=== PATIENT | male | born 2000 | race Caucasian/White ===

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

== ENCOUNTER 2023-09-15 17:27 | Emergency (ER) | payer OTHER, SELFPAY ==
[2023-09-15 17:45] VITALS: BP 118/73; PULSE 67; RESP 19; TEMP 36.7; O2SAT 99; BMI 16.5
--- NOTE | 2023-09-15 17:49 | ED_ITS ---
Discharge Plan Disposition Patient Disposition: Home, Self-Care Condition: Good Prescriptions Prescriptions: New doxycycline monohydrate 100 mg tablet 100 mg PO Q12 10 Days Qty: 20 0RF Referrals Follow up/Referrals: Brittaney Colby MD [Primary Care Provider] - See instructions Activity Restrictions/Add. Instructions Additional Instructions/Restrictions: Drink plenty of fluids. Take tylenol or ibuprofen for pain or fever. Take the medications as directed. Follow up with your regular doctor. GO TO THE ER FOR ANY WORSENING SYMPTOMS We will culture the urine. That will tell what bacteria is causing your infection and which antibiotics will treat it best. Sometimes the first antibiotic we prescribe turns out to not work against different bacteria. So, make sure you follow up within 3 days if you are not getting better. Clinical Impressions Clinical Impression: Dysuria, UTI (urinary tract infection) Instructions Patient Instructions: Urine Culture, DI for Urinary Tract Infection (UTI) Discharge ED Provider: Jacobo Horn [facility] General Stated complaint: poss UTI Time Seen by Provider: 09/15/23 17:49 History of Present Illness Provider Complaint: He states that for the past 3 days he has had dysuria and pus from his urethra. He denies any fever/chills. He denies any known std exposure. Related Data Previous Rx's Medication Instructions Recorded doxycycline monohydrate 100 mg 100 mg PO Q12 10 days #20 tabs 09/15/23 tablet Allergies Allergy/AdvReac Type Severity Reaction Status Date / Time No Known Allergies Allergy Verified 12/23/18 15:17 [facility] Disclaimer: The information contained in this section may have been updated after the patient was seen, as this information can be updated by other users. Medical History (Updated 09/15/23 @ 18:31 by Jacobo Horn APRN) No significant past medical history Social History Smoking Status: Never smoker second hand exposure: No alcohol intake: never current occupational status: other Travel in the last 8 weeks: None household members: family housing: house current occupational exposures/hazards: No caffeine: Yes ROS Obtained: Yes All systems reviewed & no additional complaints except as documented Constitutional Constitutional: Denies chills and Denies fever(s) Eyes Eyes: Denies eye discharge ENT Ears, Nose, Mouth, and Throat: Denies dizziness, Denies otalgia and Denies sore throat Cardiovascular Cardiovascular: Denies chest pain Respiratory Respiratory: Denies shortness of breath, Denies chest congestion, Denies cough, Denies stridor and Denies wheezing Gastrointestinal Gastrointestingal: Denies nausea or vomiting Genitourinary Male Genitourinary: Reports as per HPI, Reports difficulty urinating, Denies flank pain, Denies genital lesions, Denies scrotal swelling, Denies testicular pain, Denies urinary frequency, Denies urinary hesitancy, Denies urinary incontinence and Denies urinary urgency Musculoskeletal Musculoskeletal: Reports system reviewed and no additional complaints, except as documented and Denies arthralgias Integumentary/Breasts Skin/Breast: Denies rash Neurologic Neurologic: Denies dizziness and Denies paresthesias Allergic/Immunologic Allergic/Immunologic: Denies wheezing Physical Exam General General appearance: alert and in no apparent distress Head Head exam: atraumatic, normocephalic and normal inspection Eye Eye exam: Present normal appearance, PERRL and EOMI ENT ENT exam: Present normal exam, normal oropharynx, mucous membranes moist, TM's normal bilaterally and normal external ear exam Neck Neck exam: Present normal inspection, full ROM and trachea midline; Absent meningismus or lymphadenopathy Chest Chest inspection: Present normal inspection and symmetric chest wall rise; Absent tenderness Respiratory Respiratory exam: Present normal lung sounds bilaterally; Absent respiratory distress Cardiovascular Cardiovascular exam: Present regular rate and normal rhythm; Absent JVD Abdominal Exam Abdominal exam: Present soft and normal bowel sounds; Absent distention, tenderness or guarding Extremities Exam Extremities exam: Present normal inspection, full ROM and normal capillary refill; Absent calf tenderness Back Exam Back exam: Present normal inspection; Absent tenderness Neurological Exam Neurological exam: Present alert and oriented X3 Psychiatric Psychiatric exam: Present normal affect and normal mood Skin Skin exam: Present warm, dry, intact and normal color Lymphatic Lymphatic Findings: no adenopathy Medical Decision Making Medical Records Medical records reviewed: No I reviewed the patient's medical records. Matt Inquiry Pt receiving controlled substance: No Lab Data Lab results reviewed: Yes I reviewed the patient's lab results.
[2023-09-15 18:06] LABS: Apearance,Urine Clear (Clear); Bilirubin,Urine Negative (Negative); Blood, Urine 1+ (Negative); Color,Urine Yellow (Yellow); Glucose,Urine (UA) Negative (Negative); Ketones,Urine Negative (Negative); Protein,Urine Negative (Negative); UTC Leukocyte Esterase,Urine 1+ (Negative); UTC Nitrate,Urine Negative (Negative); Urobilinogen,Urine 0.2 EU/dl (0.2)
[2023-09-15 18:35] VITALS: BP 118/73; PULSE 67; RESP 19; TEMP 36.7; O2SAT 99
[2023-09-19 21:08] LABS: Neisseria gonorrhoeae, NAA Negative (Negative)
== END 2023-09-15 18:37 | disposition home or self-care (01) ==
PROVIDERS: Emergency Provider Nurse Practitioner Family; PCP Family Medicine
DX: N39.0 Urinary tract infection, site not specified (principal); R30.0 Dysuria
CPT/HCPCS: 81003; 87086; 87491; 87591; 99212; 99214; G0463

== ENCOUNTER 2023-11-13 18:13 | Emergency (ER) | payer OTHER, SELFPAY ==
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
[2023-11-13 19:45] VITALS: BP 114/65; PULSE 73; RESP 18; TEMP 36.8; O2SAT 100; BMI 16.3
--- NOTE | 2023-11-13 20:06 | EXP.UTC ---
Discharge Plan Disposition Patient Disposition: Home, Self-Care Condition: Good Prescriptions Prescriptions: New bacitracin 500 unit/gram ointment 1 applic topical TID 10 Days Qty: 28 0RF Rx Instructions: apply to abrasions on right hand ondansetron 4 mg tablet,disintegrating 4 mg PO Q8H PRN (Reason: nausea and vomiting) Qty: 10 0RF No Action doxycycline monohydrate 100 mg tablet 100 mg PO Q12 10 Days Qty: 20 0RF Referrals Follow up/Referrals: Brittaney Colby MD [Primary Care Provider] - See instructions Activity Restrictions/Add. Instructions Additional Instructions/Restrictions: Clean abrasions with antibacterial soap and water Apply bacitracin to wounds on hand as advised Follow up with your Family Doctor if needed Straight to ER if any life threatening symptoms Clinical Impressions Clinical Impression: Contusion of hand Qualifiers: Encounter type: initial encounter Laterality: right Qualified Code(s): S60.221A - Contusion of right hand, initial encounter Instructions Patient Instructions: DI for Contusion, DI for Abrasion Print Language Print Language: Hungarian Discharge ED Provider: Sherry Sosa [facility] General Stated complaint: AO 11/10/23 1800 injury right hand Time Seen by Provider: 11/13/23 20:06 History of Present Illness Provider Complaint: Patient states that a couple days ago he was agrivated and punched a wall hurting his right hand States that he has several abrasions on his hand and it is bruised so today he came in to get it checked States also been having diarrhea on and off for last week and nausea for the last couple of days Related Data Previous Rx's ?Medication ?Instructions ?Recorded doxycycline monohydrate 100 mg 100 mg PO Q12 10 days #20 tabs 09/15/23 tablet bacitracin 500 unit/gram topical 1 applic topical TID 10 days #28 11/13/23 ointment grams ondansetron 4 mg disintegrating 4 mg PO Q8H PRN nausea and 11/13/23 tablet vomiting #10 tabs Allergies Allergy/AdvReac Type Severity Reaction Status Date / Time No Known Allergies Allergy Verified 12/23/18 15:17 [facility] Disclaimer: The information contained in this section may have been updated after the patient was seen, as this information can be updated by other users. Medical History (Updated 11/13/23 @ 20:11 by Sherry Sosa APRN) No significant past medical history Social History (Updated 09/17/23 @ 10:51 by Jacobo Horn APRN) Smoking Status: Never smoker second hand exposure: No alcohol intake: never current occupational status: other Travel in the last 8 weeks: None household members: family housing: house current occupational exposures/hazards: No caffeine: Yes ROS Obtained: Yes All systems reviewed & no additional complaints except as documented and Yes Systems reviewed as appropriate & no additional complaints except as documented Constitutional Constitutional: Reports system reviewed and no additional complaints, except as documented and Reports as per HPI ENT Ears, Nose, Mouth, and Throat: Reports system reviewed and no additional complaints, except as documented and Reports as per HPI Cardiovascular Cardiovascular: Reports system reviewed and no additional complaints, except as documented and Reports as per HPI Respiratory Respiratory: Reports system reviewed and no additional complaints, except as documented and Reports as per HPI Gastrointestinal Gastrointestingal: Reports system reviewed and no additional complaints, except as documented, as per HPI, diarrhea and nausea; Denies abdominal pain Musculoskeletal Musculoskeletal: Reports system reviewed and no additional complaints, except as documented, Reports as per HPI and Reports other Comments: abrasions and bruising to right hand Physical Exam General General appearance: alert and in no apparent distress ENT ENT exam: Present mucous membranes moist Respiratory Respiratory exam: Present normal lung sounds bilaterally; Absent respiratory distress or wheezes Cardiovascular Cardiovascular exam: Present regular rate, normal rhythm and normal heart sounds Expanded Upper Extremity Exam Right: Hand exam: Present tenderness and ecchymosis Hand L/R back image: 1. abrasions and bruising noted able to move fingers easily Neurological Exam Neurological exam: Present alert, oriented X3 and normal gait Medical Decision Making Matt Inquiry Pt receiving controlled substance: No Matt was queried for this patient: No Orders (Tests/Meds): ORDERS Category Date Time Status Hand XR right minimum 3 views [XR hand RT min 3V] Stat Exams 11/13/23 18:28 Completed Wrist XR right minimum 3 views [XR wrist RT min 3V] Exams 11/13/23 18:28 Completed Stat Radiology Data #1: Image(s): Hand Image Reviewed: Yes I have reviewed radiologist's interpretation IMPRESSION: No acute fracture or dislocation. #2: Image(s): Wrist Image Reviewed: Yes I have reviewed radiologist's interpretation
[2023-11-13 20:19] VITALS: BP 114/65; PULSE 73; RESP 18; TEMP 36.8; O2SAT 100
== END 2023-11-13 20:28 | disposition home or self-care (01) ==
PROVIDERS: Emergency Provider Nurse Practitioner; PCP Family Medicine
DX: S60.221A Contusion of right hand, initial encounter (principal); W22.8XXA Striking against or struck by other objects, initial encounter
CPT/HCPCS: 73110; 73130; 99212; 99214; G0463

== ENCOUNTER 2023-12-07 19:17 | Emergency (ER) | payer OTHER, SELFPAY ==
[2023-12-07 19:27] VITALS: BP 107/68; PULSE 81; RESP 20; TEMP 36.6; O2SAT 100; BMI 16.5
--- NOTE | 2023-12-07 19:31 | ED_ITS ---
Discharge Plan Disposition Patient Disposition: Home, Self-Care Condition: Good Prescriptions Prescriptions: New ondansetron 4 mg Tablet,Disintegrating 4 mg PO Q8H PRN (Reason: Nausea) Qty: 12 0RF Referrals Follow up/Referrals: Brittaney Colby MD [Primary Care Provider] - See instructions Activity Restrictions/Add. Instructions Additional Instructions/Restrictions: Drink plenty of fluids. Water or an electrolyte drink like pedialyte would be best. Take the zofran (ondesetron) as directed for nausea/vomiting. Follow up with your regular doctor. GO TO THE ER FOR ANY WORSENING SYMPTOMS Make sure you bring the diarrhea stool sample back so we can analyze it and find out what's causing your ongoing diarrhea. Clinical Impressions Clinical Impression: Diarrhea Stand Alone Forms Stand Alone Forms: Work/School Release Instructions Patient Instructions: Diarrhea Print Language Print Language: Greenlandic Discharge ED Provider: Jacobo Horn [facility] HPI General Stated complaint: Diarrhea Mode of Arrival: Ambulatory Source of Information: Patient Time Seen by Provider: 12/07/23 19:31 Description of Symptoms (Recalled from Triage Doc. by RN): C/O DIARRHEA X2 WEEKS, DENIES ABD PAIN, C.O INTERMITTENT NAUSEA WHEN FIRST WAKING UP, INTERMITTENTLY WORSE AFTER EATING HEENT Symptoms (Recalled from RN notes): No Resp Symptoms (Recalled from RN notes): No Skin Symptoms (Recalled from RN notes): No MS Symptoms (Recalled from RN notes): No Functional Status (Recalled from RN notes): WNL; History of Present Illness Provider Complaint: He states that he has had diarrhea for the past 2 weeks. He was seen here when it first began but he did not return the stool sample back to the lab. He denies any abdominal pain. He has had intermittent nausea, but he has not vomited. He has not had any fever/chills/malaise. Related Data Previous Rx's ?Medication ?Instructions ?Recorded ondansetron 4 mg disintegrating 4 mg PO Q8H PRN Nausea #12 tabs 12/07/23 tablet Allergies Allergy/AdvReac Type Severity Reaction Status Date / Time No Known Allergies Allergy Verified 12/23/18 15:17 Worker's Comp Is this a Worker's Comp case?: No [facility] Disclaimer: The information contained in this section may have been updated after the patient was seen, as this information can be updated by other users. Medical History (Updated 12/07/23 @ 19:46 by Jacobo Horn APRN) No significant past medical history Social History (Updated 09/17/23 @ 10:51 by Jacobo Horn APRN) Smoking Status: Never smoker second hand exposure: No alcohol intake: never current occupational status: other Travel in the last 8 weeks: None household members: family housing: house current occupational exposures/hazards: No caffeine: Yes ROS Obtained: Yes All systems reviewed & no additional complaints except as documented Constitutional Constitutional: Denies chills, Denies fever(s) and Reports poor appetite ENT Ears, Nose, Mouth, and Throat: Denies dizziness and Denies sore throat Cardiovascular Cardiovascular: Denies dyspnea Respiratory Respiratory: Denies chest congestion, Denies cough and Denies dyspnea Gastrointestinal Gastrointestingal: Reports as per HPI; Denies abdominal pain or hematochezia Musculoskeletal Musculoskeletal: Denies arthralgias Integumentary/Breasts Skin/Breast: Denies rash Neurologic Neurologic: Denies dizziness Physical Exam General General appearance: alert and in no apparent distress Head Head exam: atraumatic and normocephalic Eye Eye exam: Present normal appearance, PERRL and EOMI ENT ENT exam: Present normal exam, normal oropharynx, mucous membranes moist, TM's normal bilaterally and normal external ear exam Neck Neck exam: Present normal inspection, full ROM and trachea midline; Absent tenderness, meningismus or lymphadenopathy Chest Chest inspection: Present normal inspection and symmetric chest wall rise; Absent tenderness, rash or abscess Respiratory Respiratory exam: Present normal lung sounds bilaterally; Absent respiratory distress, wheezes or stridor Cardiovascular Cardiovascular exam: Present regular rate and normal rhythm; Absent irregular rhythm, systolic murmur, diastolic murmur or JVD Abdominal Exam Abdominal exam: Present soft and hyperactive bowel sounds; Absent distention, tenderness, guarding, rebound, rigidity, psoas sign, obturator sign, heel tap sign, Mc's sign, Rovsing's sign or tenderness at McBurney's Point Extremities Exam Extremities exam: Present normal inspection and full ROM; Absent tenderness Back Exam Back exam: Present normal inspection and full ROM; Absent tenderness, CVA tenderness (R) or CVA tenderness (L) Neurological Exam Neurological exam: Present alert, oriented X3 and CN II-XII intact Psychiatric Psychiatric exam: Present normal affect and normal mood Skin Skin exam: Present warm, dry, intact and normal color Lymphatic Lymphatic Findings: no adenopathy Medical Decision Making Medical Records Medical records reviewed: No I reviewed the patient's medical records. Screening: Per USPSTF and CDC recommendations, given the prevalence of disease in our region, it is our hospital?s policy to screen for HIV and viral Hepatitis for all patients aged 18 and over and those with ongoing risk factors. Matt Inquiry Pt receiving controlled substance: No Vital Signs: 12/07/23 19:27 Temperature 97.9 F Temperature Source Oral Pulse Rate [Left Radial] 81 Respiratory Rate 20 Blood Pressure [Left Arm] 107/68 L Blood Pressure Mean [Left Arm] 81 02 Sat by Pulse Oximetry 100
[2023-12-07 19:46] VITALS: BP 107/68; PULSE 81; RESP 20; TEMP 36.6
== END 2023-12-07 19:51 | disposition home or self-care (01) ==
PROVIDERS: Emergency Provider Nurse Practitioner Family; PCP Family Medicine
DX: R19.7 Diarrhea, unspecified (principal)
CPT/HCPCS: 99213; G0381

== ENCOUNTER 2023-12-17 18:38 | Emergency (ER) | payer OTHER, SELFPAY ==
[2023-12-17 19:40] VITALS: BP 107/57; PULSE 85; RESP 20; TEMP 36.8; O2SAT 99; BMI 17.1
--- NOTE | 2023-12-17 20:06 | EXP.UTC ---
Discharge Plan Disposition Patient Disposition: Home, Self-Care Condition: Good Referrals Follow up/Referrals: Brittaney Colby MD [Primary Care Provider] - See instructions Activity Restrictions/Add. Instructions Additional Instructions/Restrictions: Make appointment with your Family Doctor for furhter treatment and evaluation of symptoms Follow up with your Family Doctor for evaluation for ADHD Watch what you are eating and make a food diary to share with your Family Doct Make sure that your drinking plenty of fluids, eating a diet high and fiber, fruits and vegetable Clinical Impressions Clinical Impression: Nausea Stand Alone Forms Stand Alone Forms: Work/School Release Instructions Patient Instructions: DI for Irritable Bowel Syndrome, Irritable Bowel Syndrome Print Language Print Language: Samoan Discharge ED Provider: Sherry Sosa [facility] [place] General Stated complaint: Stomach pain,ADHD Mode of Arrival: Ambulatory Source of Information: Patient Limitations: No Limitations Time Seen by Provider: 12/17/23 20:06 Description of Symptoms (Recalled from Triage Doc. by RN): PATIENT C/O VOMITING AND OCCASIONAL STOMACH PAIN FOR APPROX 4 WEEKS HEENT Symptoms (Recalled from RN notes): No Resp Symptoms (Recalled from RN notes): No Skin Symptoms (Recalled from RN notes): No MS Symptoms (Recalled from RN notes): No Functional Status (Recalled from RN notes): WNL History of Present Illness Provider Complaint: Patient states that for the last month he has been having diarrhea then constipation States that he thinks he may have IBS and he was not able to go to work Mon, and monday and wanted to see if he could get a note for it States also he thinks he may have ADHD and wasnt sure if he could be seen here for that Related Data Allergies Allergy/AdvReac Type Severity Reaction Status Date / Time No Known Allergies Allergy Verified 12/23/18 15:17 Worker's Comp Is this a Worker's Comp case?: No [facility] Disclaimer: The information contained in this section may have been updated after the patient was seen, as this information can be updated by other users. Medical History (Updated 12/17/23 @ 20:19 by Sherry Sosa APRN) No significant past medical history Social History (Updated 09/17/23 @ 10:51 by Jacobo Horn APRN) Smoking Status: Never smoker second hand exposure: No alcohol intake: never current occupational status: other Travel in the last 8 weeks: None household members: family housing: house current occupational exposures/hazards: No caffeine: Yes ROS Obtained: Yes All systems reviewed & no additional complaints except as documented and Yes Systems reviewed as appropriate & no additional complaints except as documented Constitutional Constitutional: Reports system reviewed and no additional complaints, except as documented and Reports as per HPI ENT Ears, Nose, Mouth, and Throat: Reports system reviewed and no additional complaints, except as documented and Reports as per HPI Cardiovascular Cardiovascular: Reports system reviewed and no additional complaints, except as documented and Reports as per HPI Respiratory Respiratory: Reports system reviewed and no additional complaints, except as documented and Reports as per HPI Gastrointestinal Gastrointestingal: Reports system reviewed and no additional complaints, except as documented, as per HPI, constipation, cramping, diarrhea and nausea Genitourinary Male Genitourinary: Reports system reviewed and no additional complaints, except as documented and Reports as per HPI Physical Exam General General appearance: alert and in no apparent distress ENT ENT exam: Present mucous membranes moist Respiratory Respiratory exam: Present normal lung sounds bilaterally; Absent respiratory distress or wheezes Cardiovascular Cardiovascular exam: Present regular rate, normal rhythm and normal heart sounds Abdominal Exam Abdominal exam: Present soft and normal bowel sounds; Absent distention, tenderness, guarding or rebound Neurological Exam Neurological exam: Present alert, oriented X3 and normal gait Medical Decision Making Medical Records Screening: Per USPSTF and CDC recommendations, given the prevalence of disease in our region, it is our hospital?s policy to screen for HIV and viral Hepatitis for all patients aged 18 and over and those with ongoing risk factors. Matt Inquiry Pt receiving controlled substance: No Matt was queried for this patient: No Vital Signs: 12/17/23 19:40 Temperature 98.3 F Temperature Source Oral Pulse Rate [Left Brachial] 85 Respiratory Rate 20 Blood Pressure [Left Arm] 107/57 L Blood Pressure Mean [Left Arm] 73 Blood Pressure Source [Left Arm] Automatic Cuff Blood Pressure Position [Left Arm] Sitting 02 Sat by Pulse Oximetry 99 Oxygen Delivery Method Room Air
[2023-12-17 20:20] VITALS: BP 107/57; PULSE 85; RESP 20; TEMP 36.8; O2SAT 99
[2023-12-17 20:32] LABS: Adenovirus F 40/41, stool Not Detected (NotDetected); Astrovirus Not Detected (NotDetected); Campylobacter Not Detected (NotDetected); Clostridium Difficile A/B, PCR Not Detected (NotDetected); Cryptosporidium Not Detected (NotDetected); Cyclospora Cayetanesis Not Detected (NotDetected); Entamoeba histolytica Not Detected (NotDetected); Enteroaggregative E coli Not Detected (NotDetected); Enterotoxigenic E coli Not Detected (NotDetected); Norovirus Not Detected (NotDetected); Plesimonas Shigalloides, PCR Not Detected (NotDetected); Rotavirus A Not Detected (NotDetected); Salmonella, PCR Not Detected (NotDetected); Sapovirus Not Detected (NotDetected); Shiga-like toxin E coli Not Detected (NotDetected); Shigella Enterovasive E coli Not Detected (NotDetected); Vibrio Cholerae Not Detected (NotDetected); Vibrio, PCR Not Detected (NotDetected); Yersinia Entercolitica, PCR Not Detected (NotDetected)
[2023-12-18 08:50] LABS: Enteropathogenic E coli Detected (NotDetected); Giardia lamblia Detected (NotDetected)
--- NOTE | 2023-12-18 11:48 | PC.NURSE ---
ATTEMPTED TO NOTIFY PATIENT OF DIARRHEA PANEL RESULTS AND NEW MEDICATION SENT IN BY Romulo PEARL APRN. NO ANSWER, VOICE MAIL LEFT TO RETURN CALL
== END 2023-12-17 20:24 | disposition home or self-care (01) ==
PROVIDERS: Emergency Provider Nurse Practitioner; PCP Family Medicine
DX: R11.0 Nausea (principal)
CPT/HCPCS: 87507; 99213; G0381

== ENCOUNTER 2024-03-09 14:20 | Emergency (ER) | payer OTHER, SELFPAY ==
--- NOTE | 2024-03-09 14:28 | XR_ITS ---
PROCEDURE INFORMATION: Exam: XR Right Foot Exam date and time: 03/09/2024 2:24 PM Age: 23 years old Clinical indication: Injury or trauma; Other: Dog stepped on foot; Blunt trauma; Right TECHNIQUE: Imaging protocol: Radiologic exam of the right foot. Views: 3 or more views. Total images: 3 COMPARISON: No relevant prior studies available. FINDINGS: Bones/joints: No evidence of acute fracture or dislocation. Soft tissues: Soft tissues are within normal limits. IMPRESSION: No evidence of acute fracture or dislocation.
[2024-03-09 15:40] VITALS: BP 129/76; PULSE 84; RESP 18; TEMP 36.9; O2SAT 98; BMI 16.7
--- NOTE | 2024-03-09 16:17 | EXP.UTC ---
Discharge Plan Disposition Patient Disposition: Home, Self-Care Condition: Good Prescriptions Prescriptions: No Action metronidazole 250 mg tablet 250 mg PO TID 7 Days Qty: 21 0RF Referrals Follow up/Referrals: Brittaney Colby MD [Primary Care Provider] - See instructions Activity Restrictions/Add. Instructions Additional Instructions/Restrictions: *weight bearing as tolerated *RICE, Rest the extremity, Ice 15-20 minutes 3-4 times daily, Compress- wear the sandeep wrap as discussed as much as possible to help reduce swelling and pain, Elevate the extremity when at rest *Sandeep wrap is for support and help control swelling, use it except in the shower. Be sure that is not to tight but not to loose either *Elevate when resting? *Ibuprofen 600-800mg every 6-8 hours as needed for pain an inflammation. If need something more can take Tylenol in between doses of Ibuprofen to help Immediately follow up with your family doctor for new or worsening of symptoms, or no noticeable improvement over the next 3-5 days Clinical Impressions Clinical Impression: Contusion of foot Instructions Patient Instructions: DI for Contusion, Contusion Print Language Print Language: [place] Citizen Discharge ED Provider[place] [facility] [place] General Stated complaint: left foot pain Mode of Arrival: Ambulatory Source of Information: Patient Limitations: No Limitations Time Seen by Provider: 03/09/24 16:17 Description of Symptoms (Recalled from Triage Doc. by RN): PATIENT C/O PAIN TO RIGHT FOOT AFTER HITTING IN ON A DESK WHILE PLAYING WITH HIS DOG LAST NIGHT HEENT Symptoms (Recalled from RN notes): No Resp Symptoms (Recalled from RN notes): No Skin Symptoms (Recalled from RN notes): No MS Symptoms (Recalled from RN notes): Yes Functional Status (Recalled from RN notes): WNL History of Present Illness Provider Complaint: Pain in top of right foot after hitting it on table last night States that top of foot is tender and bruised so he wanted to get it checked Related Data Previous Rx's ?Medication ?Instructions ?Recorded metronidazole 250 mg tablet 250 mg PO TID 7 days #21 tabs 12/18/23 Allergies Allergy/AdvReac Type Severity Reaction Status Date / Time No Known Allergies Allergy Verified 12/23/18 15:17 Worker's Comp Is this a Worker's Comp case?: No [facility] Disclaimer: The information contained in this section may have been updated after the patient was seen, as this information can be updated by other users. Medical History (Updated 03/09/24 @ 16:26 by Sherry Sosa APRN) No significant past medical history Social History (Updated 09/17/23 @ 10:51 by Jacobo Horn APRN) Smoking Status: Never smoker second hand exposure: No alcohol intake: never current occupational status: other Travel in the last 8 weeks: None household members: family housing: house current occupational exposures/hazards: No caffeine: Yes Have you lived/traveled outside [place] in past 30 days?: No Contact w/someone who lives/traveled outside [place] past 30 days?: No Exposure to someone with infectious disease in past 14 days?: No Do you have a fever (greater than 100.4 F or 38 C)?: No Have you tested positive for COVID-19: No Exposed to someone with COVID-19 in past 14 days?: No Do you have a sore throat?: No Do you have a cough?: No Do you have any weakness?: No Do you have any diarrhea?: No Are you experiencing any unusual bleeding?: No Do you have any muscle aches/pain?: No Do you have any abdominal pain?: No Are you experiencing loss of taste or smell?: No ROS Obtained: Yes All systems reviewed & no additional complaints except as documented and Yes Systems reviewed as appropriate & no additional complaints except as documented Constitutional Constitutional: Reports system reviewed and no additional complaints, except as documented and Reports as per HPI ENT Ears, Nose, Mouth, and Throat: Reports system reviewed and no additional complaints, except as documented and Reports as per HPI Cardiovascular Cardiovascular: Reports system reviewed and no additional complaints, except as documented and Reports as per HPI Respiratory Respiratory: Reports system reviewed and no additional complaints, except as documented and Reports as per HPI Gastrointestinal Gastrointestingal: Reports system reviewed and no additional complaints, except as documented and as per HPI Musculoskeletal Musculoskeletal: Reports system reviewed and no additional complaints, except as documented, Reports as per HPI and Reports other Comments: Pain in top of right foot after hitting it on table last night Physical Exam General General appearance: alert and in no apparent distress ENT ENT exam: Present normal exam, normal oropharynx, mucous membranes moist and TM's normal bilaterally Respiratory Respiratory exam: Present normal lung sounds bilaterally; Absent respiratory distress or wheezes Cardiovascular Cardiovascular exam: Present regular rate, normal rhythm and normal heart sounds Abdominal Exam Abdominal exam: Present soft and normal bowel sounds; Absent distention or tenderness Expanded Lower Extremity Exam Right: Foot/toe exam: Present tenderness and abrasion (superficial abrasions noted); Absent swelling Neurovascular/Tendon exam: Present normal capillary refill Gait: observed and normal Neurological Exam Neurological exam: Present alert, oriented X3 and normal gait Medical Decision Making Medical Records Screening: Per USPSTF and CDC recommendations, given the prevalence of disease in our region, it is our hospital?s policy to screen for HIV and viral Hepatitis for all patients aged 18 and over and those with ongoing risk factors. Matt Inquiry Pt receiving controlled substance: No Matt was queried for this patient: No Vital Signs: 03/09/24 15:40 Temperature 98.4 F Temperature Source Oral Pulse Rate [Left Brachial] 84 Respiratory Rate 18 Blood Pressure [Left Arm] 129/76 Blood Pressure Mean [Left Arm] 93 Blood Pressure Source [Left Arm] Automatic Cuff Blood Pressure Position [Left Arm] Sitting 02 Sat by Pulse Oximetry 98 Oxygen Delivery Method Room Air Orders (Tests/Meds): ORDERS Category Date Time Status XR foot RT min 3V Stat Exams 03/09/24 14:28 Completed Radiology Data #1: Image(s): Foot/Toes Image Reviewed: Yes I have reviewed radiologist's interpretation IMPRESSION: No evidence of acute fracture or dislocation.
[2024-03-09 16:27] VITALS: BP 129/76; PULSE 84; RESP 18; TEMP 36.9; O2SAT 98
== END 2024-03-09 16:33 | disposition home or self-care (01) ==
PROVIDERS: Emergency Provider Nurse Practitioner; PCP Family Medicine
DX: S90.31XA Contusion of right foot, initial encounter (principal)
CPT/HCPCS: 73630; 99213; G0381

== ENCOUNTER 2024-06-07 01:16 | Emergency (ER) | payer OTHER, SELFPAY ==
[2024-06-07 01:22] VITALS: BP 131/75; PULSE 88; RESP 16; TEMP 36.7; O2SAT 97; BMI 18.7
--- NOTE | 2024-06-07 01:27 | ED_ITS ---
Discharge Plan Disposition Patient Disposition: Home, Self-Care Prescriptions Prescriptions: No Action ondansetron 4 mg tablet,disintegrating 4 mg PO Q8H PRN (Reason: nausea and vomiting) Qty: 14 0RF Referrals Follow up/Referrals: Brittaney Colby MD [Primary Care Provider] - See instructions Activity Restrictions/Add. Instructions Additional Instructions/Restrictions: Please follow-up with your primary care provider for recheck of your labs. Please return to the emergency department if you develop any new or worsening symptoms or become concerned for your health. Clinical Impressions Clinical Impression: Hyperbilirubinemia Stand Alone Forms Stand Alone Forms: Work/School Release Instructions Patient Instructions: DI for Skin Abscess Print Language Print Language: Indonesian Discharge ED Provider: Hugo Briseno General Adult HPI General Chief complaint: Skin/Abscess/Foreign Body Stated complaint: vomiting, abd pain, possible jaundice Time Seen by Provider: 06/07/24 01:18 Mode of Arrival: Ambulatory Source of Information: Patient Description of Symptoms (Recalled from ER Triage Doc. by RN): Pt states family thinks he is jaundiced today Decreased appetite History of Present Illness HPI narrative: 23-year-old male without significant past medical history presents for multiple complaints. He reports his intermittent abdominal pain, generalized, comes and goes over the last couple of weeks. He reports he took a herbal cleanse called [employer] a couple of days ago. Yesterday he noted that his eyes were starting to turn yellow and so he presents for further evaluation. He denies significant pain or other symptoms at this time. Reports has been having bowel movements that are more green than normal but denies any significant diarrhea. Denies any drug use. Related Data Previous Rx's ?Medication ?Instructions ?Recorded ondansetron 4 mg disintegrating 4 mg PO Q8H PRN nausea and 06/04/24 tablet vomiting #14 tabs Allergies Allergy/AdvReac Type Severity Reaction Status Date / Time No Known Allergies Allergy Verified 06/04/24 13:47 [facility] Disclaimer: The information contained in this section may have been updated after the patient was seen, as this information can be updated by other users. Medical History No significant past medical history Social History Smoking Status: Current every day smoker second hand exposure: No alcohol intake: never current occupational status: other Travel in the last 8 weeks: None household members: family housing: house current occupational exposures/hazards: No caffeine: Yes Have you lived/traveled outside US in past 30 days?: No Contact w/someone who lives/traveled outside US past 30 days?: No Exposure to someone with infectious disease in past 14 days?: No Do you have a fever (greater than 100.4 F or 38 C)?: No Have you tested positive for COVID-19: No Exposed to someone with COVID-19 in past 14 days?: No Do you have a sore throat?: No Do you have a cough?: No Do you have any weakness?: No Do you have any diarrhea?: No Are you experiencing any unusual bleeding?: No Do you have any muscle aches/pain?: No Do you have any abdominal pain?: Yes Are you experiencing loss of taste or smell?: No ROS Obtained: Yes All systems reviewed & no additional complaints except as documented Physical Exam General General appearance: alert and in no apparent distress Head Head exam: atraumatic and normocephalic Eye Eye exam: Present normal appearance, PERRL and EOMI ENT ENT exam: Present normal oropharynx and normal external ear exam Neck Neck exam: Present normal inspection and full ROM Chest Chest inspection: Present normal inspection and symmetric chest wall rise; Absent tenderness Respiratory Respiratory exam: Present normal lung sounds bilaterally; Absent respiratory distress Cardiovascular Cardiovascular exam: Present regular rate and normal rhythm Abdominal Exam Abdominal exam: Present soft; Absent distention, tenderness or guarding Extremities Exam Extremities exam: Present normal inspection; Absent edema or joint swelling Back Exam Back exam: Present normal inspection; Absent tenderness Neurological Exam Neurological exam: Present alert and oriented X3; Absent motor sensory deficit Psychiatric Psychiatric exam: Present normal affect and normal mood Skin Skin exam: Present warm, dry and normal color Lymphatic Lymphatic Findings: no adenopathy Medical Decision Making Medical Records Medical records reviewed: Yes I reviewed the patient's medical records. Screening: Per USPSTF and CDC recommendations, given the prevalence of disease in our region, it is our hospital?s policy to screen for HIV and viral Hepatitis for all patients aged 18 and over and those with ongoing risk factors. Matt Inquiry Pt receiving controlled substance: No Matt was queried for this patient: No Vital Signs: 06/07/24 01:22 06/07/24 04:02 Temperature 98.0 F 98 F Temperature Source Oral Pulse Rate 88 Pulse Rate [Right Brachial] 88 Respiratory Rate 16 14 Blood Pressure 117/77 Blood Pressure [Right Arm] 131/75 Blood Pressure Mean [Right Arm] 93 Blood Pressure Source [Right Arm] Automatic Cuff Blood Pressure Position Sitting Blood Pressure Position [Right Arm] Sitting 02 Sat by Pulse Oximetry 97 Oxygen Delivery Method Room Air Room Air Lab Data Lab results reviewed: Yes I reviewed the patient's lab results. Lab Results 06/07/24 01:56: WBC 7.7, RBC 4.75, Hgb 14.8, Hct 41.4 L, MCV 87.2, MCH 31.2, M CHC 35.7 H, RDW 11.7, Plt Count 302, MPV 9.4, Neut % (Auto) 60.6, Lymph % (Auto) 26.7, [place] % (Auto) 8.6, Eos % (Auto) 3.3, Baso % (Auto) 0.7, Neut # (Auto) 4.7, Lymph # (Auto) 2.1, [place] # (Auto) 0.7, Eos # (Auto) 0.3, Baso # (Auto) 0.1, PT 11.9, INR 1.07, Sodium 140, Potassium 4.1, Chloride 99, Carbon Dioxide 28, Anion Gap 17.1 H, BUN 13, Creatinine 0.90, Estimated Creat Clear 125, Estimated GFR 107, Est GFR ( Amer) 129, Glucose 94, Calcium 10.0, Total Bilirubin 4.8 H , Direct Bilirubin 0.2, Conjugated Bilirubin 0.0, Indirect Bilirubin 4.6 H, U nconjugated Bilirubin 4.6 H, AST 30, ALT 22, Alkaline Phosphatase 75, Total Protein 8.8 H, Albumin 5.3 H, Globulin 3.5 H, Albumin/Globulin Ratio 1.5, HCV Ab IKE w/Rflx PCR Qn Negative, Monoscreen Negative, HIV Ag/Ab Combo Qual Negative 06/07/24 01:56 06/07/24 01:56 Orders (Tests/Meds): ED MEDICATIONS Discontinued Medications Generic Name Dose Route Start Last Admin Trade Name Freq PRN Reason Stop Dose Admin Iopamidol 75 ml 06/07/24 02:51 06/07/24 02:51 Iopamidol-370 (76%);100ml Bottle IV 06/07/24 02:52 75 ml ONCE ONE Administration Sodium Chloride 10 ml 06/07/24 02:51 06/07/24 02:51 Sodium Chloride 0.9% 10ml Syr (Rad Only) IV 07/07/24 02:50 10 ml NEEDED PRN Administration Maintain IV Site ORDERS Category Date Time Status CT abdomen pelvis w con Stat Cat Scan 06/07/24 01:44 Completed Bilirubin Group (Ind,Dir,Tot) Stat Lab 06/07/24 01:56 Completed CBC w/Auto Diff [Complete Blood Count Auto Diff] Stat Lab 06/07/24 01:56 Results CMP [Comprehensive Metabolic Panel] Stat Lab 06/07/24 01:56 Completed HIV Combo Routine Lab 06/07/24 01:56 Completed Hepatitis C Ab Qual. W/ RFX Routine Lab 06/07/24 01:56 Completed Hepatitis Panel Stat Lab 06/07/24 01:56 Received INR [Prothrombin Time INR] Stat Lab 06/07/24 01:56 Completed Monoscreen (Rapid) Stat Lab 06/07/24 01:56 Completed Peripheral Smear Review Stat Lab 06/07/24 01:56 Results Medical Decision Narrative: 23-year-old male without significant past medical history presents with couple weeks of vague migratory abdominal pain, 1 day of jaundice. History was obtained via interactive discussion with patient. On arrival, patient is [afebrile, hemodynamically stable, satting appropriately, alert, oriented x4, GCS 15], moving all extremities spontaneously. Full physical exam performed and significant for subtle scleral icterus, no abdominal tenderness Differential includes but is not limited to hepatitis, cholecystitis, choledocholithiasis, gilbert syndrome,. Workup initiated including CBC CMP peripheral smear, hepatitis panel, bilirubin conjugated and unconjugated, HIV,. On re-evaluation, patient [remains afebrile, HD stable.] Laboratory workup independently interpreted by me and significant for hyperbilirubinemia with direct bilirubin 0.2, indirect bilirubin 4.6. No anemia noted, normal LFTs. Imaging independently interpreted by me and significant for no evidence of biliary pathology, no other abnormality noted. See radiology read for full review of final results. Given patient history, exam and workup, patient's presentation most likely represents asymptomatic unconjugated hyperbilirubinemia. Underlying etiology is uncertain. Patient has no history of gilbert syndrome or other biliary pathology. No abnormal findings on CT imaging, LFTs are otherwise normal. Could be related to the herbal cleanse that he took a couple of days ago. no further workup needed in the ER. Patient was discharged in stable condition with instructions to call his PCP and follow-up for lab recheck. Procedures Risk/Benefits of Procedure(s) Were Explained: Yes Critical Care Critical Care Time Critical Care Time: No
--- NOTE | 2024-06-07 01:44 | CT_ITS ---
PROCEDURE INFORMATION: Exam: CT Abdomen And Pelvis With Contrast Exam date and time: 06/07/2024 2:46 AM Age: 23 years old Clinical indication: Abdominal pain; Additional info: 2 weeks abd pain, jaundice TECHNIQUE: Imaging protocol: Computed tomography of the abdomen and pelvis with contrast. Radiation optimization: All CT scans at this facility use at least one of these dose optimization techniques: automated exposure control; mA and/or kV adjustment per patient size (includes targeted exams where dose is matched to clinical indication); or iterative reconstruction. Contrast material: ISOVUE; Contrast volume: 75 ml; Contrast route: IV; COMPARISON: No relevant prior studies available. FINDINGS: Liver: Normal. No mass. Gallbladder and biliary ducts: Normal. No calcified stones. No ductal dilation. Pancreas: Normal. No ductal dilation. Spleen: Normal. No splenomegaly. Adrenal glands: Normal. No mass. Kidneys and ureters: Punctate bilateral caliceal stones without ureteral or bladder stone. Stomach and bowel: Unremarkable. No obstruction. No mucosal thickening. Appendix: No evidence of appendicitis. Intraperitoneal space: Unremarkable. No free air. No significant fluid collection. Vasculature: Unremarkable. No abdominal aortic aneurysm. Lymph nodes: Unremarkable. No enlarged lymph nodes. Urinary bladder: See Kidneys and ureters finding. Reproductive: Unremarkable as visualized. Bones/joints: Unremarkable. No acute fracture. Soft tissues: Unremarkable. IMPRESSION: Punctate bilateral caliceal stones without ureteral or bladder stone. No visualized hepatobiliary pathology.
[2024-06-07 02:12] LABS: Basophils # 0.1 K/mm3 (0-0.2); Basophils % 0.7 % (0.1-2.0); Eosinophils # 0.3 K/mm3 (0.0-0.4); Eosinophils % 3.3 % (0.1-12.0); Hematocrit 41.4 % (42.0-52.0); Hemoglobin 14.8 g/dL (14.1-18.0); Lymphocytes # 2.1 K/mm3 (0.7-4.5); Lymphocytes % 26.7 % (10-50); Mean Corpuscular HGB Conc 35.7 g/dL (31.8-35.4); Mean Corpuscular Hemoglobin 31.2 pg (27.0-31.2); Mean Corpuscular Volume 87.2 fl (80-94); Mean Platelet Volume 9.4 fl (7.4-10.4); Monocytes # 0.7 K/mm3 (0.1-1.0); Monocytes % 8.6 % (1.7-9.3); Neutrophils # 4.7 K/mm3 (1.8-7.8); Neutrophils % 60.6 % (37.0-80.0); Platelet Count 302 K/mm3 (142-424); Red Blood Count 4.75 M/mm3 (4.60-6.20); Red Cell Distribution Width 11.7 % (11.5-17.5); White Blood Count 7.7 K/mm3 (4.8-10.8)
[2024-06-07 02:22] LABS: Alanine Aminotransferase 22 U/L (12-78); Albumin Level 5.3 g/dl (3.5-5.0); Albumin/Globulin Ratio 1.5 (1.1-1.8); Alkaline Phosphatase 75 U/L (38-126); Anion Gap 17.1 mEq/L (5-15); Aspartate Amino Transferase 30 U/L (17-59); Bilirubin,Direct 0.2 mg/dl (0.0-0.4); Bilirubin,Indirect 4.6 mg/dL (0.0-0.9); Bilirubin,Total 4.8 mg/dl (0.2-1.3); Bilirubin,Unconjugated 4.6 mg/dL (0.0-1.1); Blood Urea Nitrogen 13 mg/dl (9-20); Carbon Dioxide 28 mmol/L (22.0-30.0); Chloride 99 mmol/L (98-107); Creatinine Clearance Estimated 125 mL/min (50-200); Estimated Glomerular Filt Rate 107 ml/min (>60); GFR (African American) 129 ML/MIN (>60); Globulin 3.5 g/dL (1.3-3.2); Glucose 94 mg/dl (74-100); Potassium 4.1 mmoL/L (3.5-5.1); Sodium 140 mmol/L (136-145); Total Protein,Serum 8.8 g/dl (6.3-8.2)
[2024-06-07 02:25] LABS: INR 1.07 (0.9-1.1); Prothrombin Time 11.9 seconds (10.1-12.5)
[2024-06-07 02:26] LABS: Monoscreen (Rapid) Negative (Negative)
[2024-06-07] MEDS: SODIUM CHLORIDE 0.9% 10ML SYR (RAD ONLY) 10 ML IV (02:51)
[2024-06-07] MEDS: IOPAMIDOL-370 (76%);100ML BOTTLE 75 ML IV (02:51)
[2024-06-07 04:02] VITALS: BP 117/77; PULSE 88; RESP 14; TEMP 36.6; O2SAT 96
[2024-06-07 04:48] LABS: Hepatitis C Ab Qual. W/ RFX NEGATIVE (Negative)
[2024-06-07 05:38] LABS: HIV Combo NEGATIVE (Negative)
[2024-06-08 06:10] LABS: HBsAg Screen Negative (Negative); HCV Ab Non Reactive (Non Reactive); Hep A Ab, IGM Negative (Negative); Hep B Core Ab, IgM Negative (Negative)
[2024-06-09 02:09] LABS: Peripheral Smear Review Scanned Result
== END 2024-06-07 04:04 | disposition home or self-care (01) ==
PROVIDERS: Emergency Provider Emergency Medicine; PCP Family Medicine
DX: E80.6 Other disorders of bilirubin metabolism (principal); F17.210 Nicotine dependence, cigarettes, uncomplicated
CPT/HCPCS: 74177; 80053; 80074; 82247; 82248; 85025; 85610; 86318; 86803; 87389; 99285; Q9967

== ENCOUNTER 2024-07-25 12:21 | Emergency (ER) | payer OTHER, SELFPAY ==
[2024-07-25 12:30] VITALS: BP 131/70; PULSE 83; RESP 20; TEMP 36.7; O2SAT 100; BMI 19.0
--- NOTE | 2024-07-25 12:33 | CT_ITS ---
FINAL REPORT TECHNIQUE: Noncontrast exam This study was performed with techniques to keep radiation doses as low as reasonably achievable, (ALARA). Individualized dose reduction techniques using automated exposure control or adjustment of mA and/or kV according to the patient''s size were employed. CLINICAL HISTORY: L flank / LLQ abd pain hx of kidney stones pain on left sided started this morning COMPARISON: 06/07/2024 FINDINGS: CT ABDOMEN PELVIS WITHOUT CONTRAST: Abdomen: There is mild left hydronephrosis and hydroureter without an obstructing stone. There is a 3 mm calcification in the bladder presumed to be a recently passed stone. There are a few small 2 mm bilateral calyceal stones noted in both kidneys. The gallbladder is unremarkable. The solid organs are otherwise unremarkable as well. No mass or free fluid is identified. Pelvis: No distal ureteral stones are seen. There is a tiny 3 mm calcification in the right side of the bladder best seen on image #105, consistent with a recently passed stone. The appendix is normal in appearance. The pelvic bowel is unremarkable. No fluid collection or adenopathy is seen. IMPRESSION: Mild left hydronephrosis and hydroureter without an obstructing stone. There is a 3 mm calcification in the bladder presumed to be a recently passed stone. A few small 2 mm bilateral calyceal stones are noted in both kidneys. Reviewed, Interpreted and Dictated by Romulo Sorto MD Transcribed by Ana Rosa Pereira Authenticated and [facility]
--- NOTE | 2024-07-25 12:37 | ED_ITS ---
<Statement entered by Keith Mackenzie MD - 07/25/24 16:15> Independently examined the patient. He is well-appearing. Has no flank tenderness. Has already passed the stone here. Urine is not infected. Small stones on CT, but creatinine within normal limits, not acutely actionable. Sent with hydration and pain control. Stricter precautions. I was consulted by the MJ, and we discussed the complexity of problems being addressed. I approved the treatment and management plan for this patient's care in the emergency department, thus performing a substantial portion of the medical decision making. Keith Mackenzie MD Discharge Plan Disposition Patient Disposition: Home, Self-Care Prescriptions Prescriptions: No Action ondansetron 4 mg tablet,disintegrating 4 mg PO Q8H PRN (Reason: nausea and vomiting) Qty: 14 0RF Referrals Follow up/Referrals: Brittaney Colby MD [Primary Care Provider] - See instructions Activity Restrictions/Add. Instructions Additional Instructions/Restrictions: Today, you were evaluated in the emergency department. You have small bilateral stones, please increase your fluid intake. You may take acetaminophen or ibuprofen as directed [id number]. Please follow-up with urology if needed. Return to the ED for worsening of condition. Clinical Impressions Clinical Impression: Bilateral renal stones Stand Alone Forms Stand Alone Forms: Work/School Release Instructions Patient Instructions: DI for Urinary Tract Infection (UTI) Print Language Print Language: Slovak Discharge ED Provider: Keith Mackenzie General Adult HPI General Chief complaint: Urogenital-Male Stated complaint: abd/side/ back pain, vomiting Time Seen by Provider: 07/25/24 12:25 Mode of Arrival: Ambulatory Source of Information: Patient and Spouse Description of Symptoms (Recalled from ER Triage Doc. by RN): pt is here bc he woke up at 1100 in severe pain from left flank area and having urinary urgency, pt has hx of kidney stone as well as some n/v History of Present Illness HPI narrative: Patient is a 24-year-old male PMHx renal calculi who presents to the ED for complaints of left flank and left groin pain that started this morning. Patient states the pain woke him up out of his sleep. He states he is has a history of kidney stones and this feels the same. Related Data Previous Rx's ?Medication ?Instructions ?Recorded ondansetron 4 mg disintegrating 4 mg PO Q8H PRN nausea and 06/04/24 tablet vomiting #14 tabs Allergies Allergy/AdvReac Type Severity Reaction Status Date / Time No Known Allergies Allergy Verified 06/04/24 13:47 [facility] Disclaimer: The information contained in this section may have been updated after the patient was seen, as this information can be updated by other users. Medical History No significant past medical history Social History Smoking Status: Current every day smoker second hand exposure: No alcohol intake: never current occupational status: other Travel in the last 8 weeks?: None household members: family housing: house current occupational exposures/hazards: No caffeine: Yes Have you lived/traveled outside US in past 30 days?: No Contact w/someone who lives/traveled outside US past 30 days?: No Exposure to someone with infectious disease in past 14 days?: No Do you have a fever (greater than 100.4 F or 38 C)?: No Have you tested positive for COVID-19?: No Exposed to someone with COVID-19 in past 14 days?: No Do you have a sore throat?: No Do you have a cough?: No Do you have any weakness?: No Do you have any diarrhea?: No Are you experiencing any unusual bleeding?: No Do you have any muscle aches/pain?: No Do you have any abdominal pain?: Yes Are you experiencing loss of taste or smell?: No ROS Obtained: Yes Systems reviewed as appropriate & no additional complaints except as documented Physical Exam General General appearance: alert and in no apparent distress Head Head exam: atraumatic and normocephalic Eye Eye exam: Present normal appearance and PERRL ENT ENT exam: Present normal exam Neck Neck exam: Present normal inspection Chest Chest inspection: Present normal inspection and symmetric chest wall rise; Absent tenderness Respiratory Respiratory exam: Present normal lung sounds bilaterally Cardiovascular Cardiovascular exam: Present regular rate Abdominal Exam Abdominal exam: Present soft, tenderness (LLQ) and normal bowel sounds Extremities Exam Extremities exam: Present normal inspection and full ROM Back Exam Back exam: Present full ROM and CVA tenderness (L) Neurological Exam Neurological exam: Present alert and oriented X3 Psychiatric Psychiatric exam: Present normal affect and normal mood Skin Skin exam: Present warm and dry Medical Decision Making Medical Records Screening: Per USPSTF and CDC recommendations, given the prevalence of disease in our region, it is our hospital?s policy to screen for HIV and viral Hepatitis for all patients aged 18 and over and those with ongoing risk factors. Matt Inquiry Pt receiving controlled substance: No Vital Signs: 07/25/24 12:30 07/25/24 13:00 07/25/24 13:31 Temperature 98.1 F Temperature Source Oral Pulse Rate 68 62 Pulse Rate [Left Radial] 83 Respiratory Rate 20 Blood Pressure 108/65 L 110/65 Blood Pressure [Right Arm] 131/70 Blood Pressure Mean [Right Arm] 90 02 Sat by Pulse Oximetry 100 97 99 Oxygen Delivery Method Room Air Room Air Room Air 07/25/24 14:32 Temperature 98.2 F Temperature Source Pulse Rate 70 Pulse Rate [Left Radial] Respiratory Rate 20 Blood Pressure 110/65 Blood Pressure [Right Arm] Blood Pressure Mean [Right Arm] 02 Sat by Pulse Oximetry Oxygen Delivery Method Room Air Lab Data Lab Results 07/25/24 12:40: WBC 8.7, RBC 4.68, Hgb 14.4, Hct 42.6, MCV 91.0, MCH 30.8, MCHC 33.8, RDW 12.0, Plt Count 276, MPV 9.5, Neut % (Auto) 51.4, Lymph % (Auto) 33.3, [place] % (Auto) 8.8, Eos % (Auto) 5.7, Baso % (Auto) 0.7, Neut # (Auto) 4.5, Lymph # (Auto) 2.9, [place] # (Auto) 0.8, Eos # (Auto) 0.5 H, Baso # (Auto) 0.1, Sodium 142, Potassium 4.1, Chloride 105, Carbon Dioxide 29, Anion Gap 12.1, BUN 16, Creatinine 0.90, Estimated Creat Clear 126, Estimated GFR 106, Est GFR ( Amer) 128, Glucose 113 H, Calcium 9.9, Total Bilirubin 1.0, AST 36, ALT 30, Alkaline Phosphatase 74, Total Protein 7.8, Albumin 5.3 H, Globulin 2.5, A lbumin/Globulin Ratio 2.1 H 07/25/24 12:55: Urine Color Yellow, Urine Appearance Clear, Urine pH 6.5, Ur Specific [place] 1.015, Urine Protein Negative, Urine Glucose (UA) Negative, Urine Ketones Negative, Urine Blood 3+ A, Urine Nitrate Negative, Urine Bilirubin Negative, Urine Urobilinogen 0.2, Ur Leukocyte Esterase Negative, Urine RBC Tntc, Urine WBC 3-5, Ur Squamous Epith Cells Occasional, Urine Bacteria Trace 07/25/24 12:40 07/25/24 12:40 Orders (Tests/Meds): ED MEDICATIONS Discontinued Medications Generic Name Dose Route Start Last Admin Trade Name Danny PRN Reason Stop Dose Admin Lactated Ringer's 500 mls @ 999 mls/hr 07/25/24 12:33 07/25/24 12:47 Lactated Ringer's 1000 Ml Bag IV 07/25/24 13:03 999 mls/hr .Q31M ONE Administration Ketorolac Tromethamine 15 mg 07/25/24 12:33 07/25/24 12:46 Ketorolac 30mg/Ml Vial IV 07/25/24 12:34 15 mg ONCE ONE Administration Ondansetron HCl 4 mg 07/25/24 12:33 07/25/24 12:47 Ondansetron 4mg/2ml Vial IV 07/25/24 12:34 4 mg ONCE ONE Administration ORDERS Category Date Time Status CT abdomen pelvis wo con Stat Cat Scan 07/25/24 12:33 Completed CBC w/Auto Diff [Complete Blood Count Auto Diff] Stat Lab 07/25/24 12:40 Completed CMP [Comprehensive Metabolic Panel] Stat Lab 07/25/24 12:40 Completed Urinalysis and Microscopic Stat Lab 07/25/24 12:55 Completed Medical Decision Narrative: In summary, patient is a 24-year-old male PMHx renal calculi who presents to the ED for complaints of left flank and left groin pain that started this morning. Patient states the pain woke him up out of his sleep. He states he is has a history of kidney stones and this feels the same. He reports chills, nausea and vomiting. He has not had anything prior to arrival. Denies any additional medical history. Denies fever, body aches, headache, chest pain, shortness of breath, diarrhea. Upon initial evaluation patient is alert, oriented and cooperative. He is hemodynamically stable. Physical exam is remarkable for left flank and left lower quadrant abdominal tenderness. Discussed with patient we will proceed with CT scan and hematologic labs. Patient symptomatically managed with IV fluids, Zofran and Toradol. Hematologic labs reviewed. CBC unremarkable for any leukocytosis, stable H&H. CMP unremarkable for any actionable abnormalities. Normal BUN and creatinine. Urinalysis remarkable for 3+ blood, negative nitrate, negative leuk esterase. Patient passed stone in urine sample. Discussed with patient since he passed a stone we can cancel the CT or proceed, shared decision making used, patient states he would like to proceed with CT scan. Nausea and pain controlled after medication. Final read of the CT abdomen pelvis remarkable for mild left hydronephrosis and hydroureter without an obstructing stone. There is a 3 mm calcification in the bladder presumed to be a recently passed stone. There are a few small 2 mm bilateral stones in both kidneys. Upon reassessment, patient states that his pain is still under control. Discussed with him that he has multiple small stones, no infected urine or obstructing stone at this time. Patient is able to PO. Discussed follow-up with urology. Return to the ED for worsening of condition. Critical Care Critical Care Time Critical Care Time: No
[2024-07-25] MEDS: KETOROLAC 30MG/ML VIAL 15 MG IV (12:46)
[2024-07-25] MEDS: LACTATED RINGERS 1000ML 500 ML 999 ML IV (12:47)
[2024-07-25] MEDS: ONDANSETRON 4MG/2ML VIAL 4 MG IV (12:47)
[2024-07-25 12:49] LABS: Basophils # 0.1 K/mm3 (0-0.2); Basophils % 0.7 % (0.1-2.0); Eosinophils # 0.5 Kmm3 (0.0-0.4); Eosinophils % 5.7 % (0.1-12.0); Hematocrit 42.6 % (42.0-52.0); Hemoglobin 14.4 g/dL (14.1-18.0); Immature Granulocytes # 0.01 10^3uL; Immature Granulocytes % 0.1 %; Lymphocytes # 2.9 K/mm3 (0.7-4.5); Lymphocytes % 33.3 % (10-50); Mean Corpuscular HGB Conc 33.8 g/dL (31.8-35.4); Mean Corpuscular Hemoglobin 30.8 pg (27.0-31.2); Mean Platelet Volume 9.5 fl (7.4-10.4); Monocytes # 0.8 K/mm3 (0.1-1.0); Monocytes % 8.8 % (1.7-9.3); Neutrophils # 4.5 K/mm3 (1.8-7.8); Neutrophils % 51.4 % (37.0-80.0); Nucleated Red Blood Cells # 0 10^3/uL; Nucleated Red Blood Cells % 0 %; Platelet Count 276 K/mm3 (142-424); Red Blood Count 4.68 M/mm3 (4.60-6.20); White Blood Count 8.7 K/mm3 (4.8-10.8)
[2024-07-25 13:00] VITALS: BP 108/65; PULSE 68; O2SAT 97
[2024-07-25 13:01] LABS: Microscopic, Urine URINE MICROSCOPIC (MICROSCOPIC)
[2024-07-25 13:02] LABS: Appearance,Urine CLEAR (Clear); Bilirubin,Urine Negative (Negative); Blood, Urine 3+ (Negative); Color,Urine YELLOW (Yellow); Glucose,Urine (UA) Negative (Negative); Ketones,Urine Negative (Negative); Leukocyte Esterase,Urine Negative (Negative); Nitrate,Urine Negative (Negative); PH,Urine 6.5 (5.0-8.5); Protein,Urine Negative (Negative); Specific Gravity, Urine 1.015 (1.005-1.030); Urobilinogen,Urine 0.2 EU/dl (0.2)
[2024-07-25 13:02] LABS: Albumin Level 5.3 g/dl (3.5-5.0); Chloride 105 mmol/L (98-107); Potassium 4.1 mmoL/L (3.5-5.1); Sodium 142 mmol/L (136-145)
[2024-07-25 13:05] LABS: Alanine Aminotransferase 30 U/L (12-78); Albumin/Globulin Ratio 2.1 (1.1-1.8); Alkaline Phosphatase 74 U/L (38-126); Anion Gap 12.1 mEq/L (5-15); Aspartate Amino Transferase 36 U/L (17-59); Blood Urea Nitrogen 16 mg/dl (9-20); Calcium 9.9 mg/dl (8.4-10.2); Carbon Dioxide 29 mmol/L (22.0-30.0); Creatinine Clearance Estimated 126 mL/min (50-200); Estimated Glomerular Filt Rate 106 ml/min (>60); GFR (African American) 128 ML/MIN (>60); Globulin 2.5 g/dL (1.3-3.2); Glucose 113 mg/dl (74-100); Total Protein,Serum 7.8 g/dl (6.3-8.2)
[2024-07-25 13:16] LABS: Bacteria,Urine Trace /lpf; RBC,Urine TNTC #/hpf (0-3); Squamous Epithelial Cell,Urine Occasional #/hpf (0-5)
[2024-07-25 13:31] VITALS: BP 110/65; PULSE 62; O2SAT 99
[2024-07-25 14:32] VITALS: BP 110/65; PULSE 70; RESP 20; TEMP 36.8; O2SAT 98
== END 2024-07-25 14:35 | disposition home or self-care (01) ==
PROVIDERS: Nurse Practitioner; Emergency Provider Emergency Medicine; PCP Family Medicine
DX: N13.0 Hydronephrosis with ureteropelvic junction obstruction (principal); N13.4 Hydroureter; R10.32 Left lower quadrant pain; N20.2 Calculus of kidney with calculus of ureter; R39.15 Urgency of urination; F17.210 Nicotine dependence, cigarettes, uncomplicated
CPT/HCPCS: 74176; 80053; 81001; 85025; 96374; 96375; 99285; J1885; J2405; J7120

== ENCOUNTER 2025-02-17 14:46 | Emergency (ER) | payer OTHER, SELFPAY ==
[2025-02-17 15:14] VITALS: BP 124/75; PULSE 103; O2SAT 98
[2025-02-17 15:17] VITALS: BP 124/75; PULSE 83; RESP 16; TEMP 36.7; O2SAT 99; BMI 17.4
--- NOTE | 2025-02-17 15:20 | XR_ITS ---
PROCEDURE INFORMATION: Exam: XR Right Hand Exam date and time: 02/17/2025 3:28 PM Age: 24 years old Clinical indication: Pain; Hand; Right; Additional info: Injury TECHNIQUE: Imaging protocol: Radiologic exam of the right hand. Views: 3 or more views. COMPARISON: CR XR HAND RT MIN 3V 11/13/2023 6:24 PM FINDINGS: Bones/joints: No acute fracture or dislocation. Soft tissues: Unremarkable. IMPRESSION: No acute fracture or dislocation of the right hand.
--- NOTE | 2025-02-17 15:20 | XR_ITS ---
PROCEDURE INFORMATION: Exam: XR Right Wrist Exam date and time: 02/17/2025 3:31 PM Age: 24 years old Clinical indication: Pain; Wrist; Right; Additional info: Injury TECHNIQUE: Imaging protocol: Radiologic exam of the right wrist. Views: 3 or more views. COMPARISON: CR XR WRIST RT MIN 3V 11/13/2023 6:26 PM FINDINGS: Bones/joints: No acute fracture or dislocation. Soft tissues: Unremarkable. IMPRESSION: No acute fracture or dislocation of the right wrist.
--- NOTE | 2025-02-17 15:20 | HMH.EDGENADL ---
Discharge Plan Disposition Patient Disposition: Home, Self-Care Condition: Good Prescriptions Prescriptions: No Action ondansetron 4 mg tablet,disintegrating 4 mg PO Q8H PRN (Reason: nausea and vomiting) Qty: 14 0RF promethazine 12.5 mg tablet 12.5 mg PO TID PRN (Reason: nausea and vomiting) Qty: 3 0RF ondansetron 4 mg tablet,disintegrating 4 mg PO Q8H PRN (Reason: nausea and vomiting) Qty: 7 0RF Referrals Follow up/Referrals: Brittaney Colby MD [Primary Care Provider, Medical] - See instructions Activity Restrictions/Add. Instructions Additional Instructions/Restrictions: Take Tylenol Motrin to help with pain and swelling. Use a soft splint for comfort. You can use heat and ice as needed to help with swelling and pain. Return to the emergency department for any acute or worsening symptoms. Clinical Impressions Clinical Impression: Hand pain, right Wrist sprain Qualifiers: Encounter type: initial encounter Laterality: right Qualified Code(s): S63.501A - Unspecified sprain of right wrist, initial encounter Print Language Print Language: Thai Discharge ED Provider: Michelle Diaz General Adult HPI General Chief complaint: Extremity Injury, Upper Stated complaint: AO-swelling/abrasions to R hand Time Seen by Provider: 02/17/25 15:16 History of Present Illness HPI narrative: Patient is a 24-year-old male who presents to the emergency department with right hand and wrist pain. Patient states that he drank last night for the first time since he was 17 patient woke up with right hand scratches and pain as well as swelling. Patient denies any other medical problems. Patient denies any numbness or weakness. Patient just reports pain with movement. Related Data Previous Rx's ?Medication ?Instructions ?Recorded ondansetron 4 mg disintegrating 4 mg PO Q8H PRN nausea and 06/04/24 tablet vomiting #14 tabs ondansetron 4 mg disintegrating 4 mg PO Q8H PRN nausea and 08/21/24 tablet vomiting #7 tabs promethazine 12.5 mg tablet 12.5 mg PO TID PRN nausea and 08/21/24 vomiting #3 tabs Allergies Allergy/AdvReac Type Severity Reaction Status Date / Time No Known Allergies Allergy Verified 08/21/24 17:38 [facility] Disclaimer: The information contained in this section may have been updated after the patient was seen, as this information can be updated by other users. Medical History No significant past medical history Social History Smoking Status: Current every day smoker second hand exposure: No alcohol intake: never current occupational status: other Travel in the last 8 weeks?: None household members: family housing: house current occupational exposures/hazards: No caffeine: Yes Have you lived/traveled outside [place] in past 30 days?: No Contact w/someone who lives/traveled outside [place] past 30 days?: No Exposure to someone with infectious disease in past 14 days?: No Do you have a fever (greater than 100.4 F or 38 C)?: No Have you tested positive for COVID-19?: No Exposed to someone with COVID-19 in past 14 days?: No Do you have a sore throat?: No Do you have a cough?: No Do you have any weakness?: No Do you have any diarrhea?: No Are you experiencing any unusual bleeding?: No Do you have any muscle aches/pain?: No Do you have any abdominal pain?: No Are you experiencing loss of taste or smell?: No ROS Obtained: Yes All systems reviewed & no additional complaints except as documented and Yes Systems reviewed as appropriate & no additional complaints except as documented Physical Exam General General appearance: alert and in no apparent distress Head Head exam: atraumatic, normocephalic and normal inspection Eye Eye exam: Present normal appearance, PERRL and EOMI; Absent scleral icterus ENT ENT exam: Present normal exam and normal external ear exam Neck Neck exam: Present normal inspection and full ROM Chest Chest inspection: Present normal inspection and symmetric chest wall rise Respiratory Respiratory exam: Present normal lung sounds bilaterally; Absent respiratory distress or wheezes Cardiovascular Cardiovascular exam: Present regular rate, normal rhythm and normal heart sounds Abdominal Exam Abdominal exam: Present soft and distention; Absent tenderness, guarding or rebound Extremities Exam Extremities exam: Present normal inspection, full ROM and other (right hand with swelling on the dorsum of the hand near the 4th and 5th digits with superficial abrasions) Back Exam Back exam: Present normal inspection and full ROM Neurological Exam Neurological exam: Present alert and oriented X3 Psychiatric Psychiatric exam: Present normal affect and normal mood Skin Skin exam: Present warm and dry Medical Decision Making Medical Records Medical records reviewed: Yes I reviewed the patient's medical records. Screening: Per USPSTF and CDC recommendations, given the prevalence of disease in our region, it is our hospital?s policy to screen for HIV and viral Hepatitis for all patients aged 18 and over and those with ongoing risk factors. Matt Inquiry Pt receiving controlled substance: No Vital Signs: 02/17/25 15:14 02/17/25 15:17 02/17/25 15:30 Temperature 98.1 F Temperature Source Oral Pulse Rate 103 H 91 H Pulse Rate [Left] 83 Respiratory Rate 16 Blood Pressure 124/75 134/66 Blood Pressure [Left Arm] 124/75 Blood Pressure Mean [Left Arm] 91 02 Sat by Pulse Oximetry 98 99 98 Oxygen Delivery Method Room Air Room Air Room Air Lab Data Lab results reviewed: Yes I reviewed the patient's lab results. Orders (Tests/Meds): ORDERS Category Date Time Status Forearm XR right 2 views [XR forearm RT 2V] Stat Exams 02/17/25 15:29 Completed XR hand RT min 3V Stat Exams 02/17/25 15:20 Completed XR wrist RT min 3V Stat Exams 02/17/25 15:20 Completed Medical Decision Narrative: Patient is a otherwise healthy 24-year-old male who presented to the emergency department with right hand pain. On arrival, patient was hemodynamically stable with unremarkable vital signs. Differential includes but not limited to: Fracture, dislocation, sprain, strain, amongst others. On exam, patient did have some swelling of the dorsum of the hand near the 4th and 5th digits with some associated superficial abrasions. X-rays were obtained which showed no acute fracture. Suspect patient has a soft tissue injury. Was advised to take Tylenol and Motrin. Patient was advised to use heat and ice as comfort. Patient was given a soft splint for comfort. Patient was otherwise discharged home in stable condition, return precautions were discussed. Critical Care Critical Care Time Critical Care Time: No
--- NOTE | 2025-02-17 15:29 | XR_ITS ---
PROCEDURE INFORMATION: Exam: XR Right Forearm Exam date and time: 02/17/2025 3:32 PM Age: 24 years old Clinical indication: Pain; Lower or forearm; Right; Additional info: Tenderness TECHNIQUE: Imaging protocol: Radiologic exam of the right forearm. Views: 2 views. COMPARISON: No relevant prior studies available. FINDINGS: Bones/joints: No acute fracture or dislocation. Soft tissues: Unremarkable. IMPRESSION: No acute fracture or dislocation of the right forearm.
[2025-02-17 15:30] VITALS: BP 134/66; PULSE 91; O2SAT 98
[2025-02-17 16:35] VITALS: BP 130/68; PULSE 90; RESP 18; TEMP 36.7; O2SAT 99
== END 2025-02-17 16:35 | disposition home or self-care (01) ==
PROVIDERS: Emergency Provider Student in an Organized Health Care Education/Training Program; PCP Family Medicine
DX: S63.501A Unspecified sprain of right wrist, initial encounter (principal); M79.641 Pain in right hand; X58.XXXA Exposure to other specified factors, initial encounter
CPT/HCPCS: 73090; 73110; 73130; 99283